=== PATIENT | female | born 1995 | race Caucasian/White ===

== ENCOUNTER 2017-12-18 23:55 | Emergency (ER) | payer MEDICAID ==
[2017-12-19] MEDS ORDERED: IBUPROFEN 600 MG TAB PO ONE (00:06)
[2017-12-19 00:08] VITALS: BP 129/72
--- NOTE | 2017-12-19 00:15 | EDPHY ---
H & P Time Seen by Provider: 12/19/17 00:05 HPI/ROS: CC: Right hand pain HPI: This 22-year-old female presents to emergency department today with her father complaining of right hand pain for the last week. She was carrying a large ceramic pot and tripped, striking her right hand against another large ceramic pot. She saw her primary care provider who did an x-ray was told they did not see any fractures. They did advise the patient that if the pain continued, it should be re-x-rayed in about 7 days. The pain is been 8/10 despite taking Motrin. It is difficult for her to write her exams for school because of the pain. The pain and bruising is on the lateral side of her hand but there is also pain in the lateral wrist. No other injury. REVIEW OF SYSTEMS: Constitutional: No recent illness. Musculoskeletal: No neck or back pain. Skin: No open wounds. Neurological: No numbness or tingling. Past Medical/Surgical History: PMH: Denied PSH: Burnside teeth NKDA Meds: OC Denies Social History: Denies tobacco or marijuana products. No ETOH. Physical Exam: General Appearance: Alert, mild distress. Eyes: Pupils equal and round no pallor or injection. ENT, Mouth: Mucous membranes are moist. Respiratory: There are no retractions, lungs are clear to auscultation. Cardiovascular: Regular rate and rhythm. Neurological: Awake and alert, sensory and motor exams grossly normal. Skin: Warm and dry, no rashes. Musculoskeletal: Neck and back are supple, nontender. Right hand has ecchymosis over the 4th metacarpal. No STS. Tender to palpation over the lateral hand and lateral wrist. CMS intact. No open wounds or abrasions. Psychiatric: Patient is oriented X 3, there is no agitation. DIFFERENTIAL DIAGNOSIS: After history and physical exam differential diagnosis was considered for but not limited to: Hand contusion, Hand fracture. Constitutional: Initial Vital Signs Temperature (C) 99.0 F 12/19/17 00:04 Heart Rate 95 12/19/17 00:04 Respiratory Rate 16 12/19/17 00:04 Blood Pressure 129/72 H 12/19/17 00:04 O2 Sat (%) 96 12/19/17 00:04 O2 Delivery Mode Room Air Allergies/Adverse Reactions: No Known Allergies Allergy (Unverified 12/19/17 00:04) Home Medications: Medication Instructions Recorded Bcp 12/19/17 Medical Decision Making - Diagnostics Imaging Results: Right hand x-ray negative for fracture or foreign body by my read. Imaging: I viewed and interpreted images myself ED Course/Re-evaluation: The patient was seen and examined. Vital signs reviewed. Her prior x-rays were not available for my review. Repeat x-rays showed no acute or subacute fracture or soft tissue swelling or foreign body by my read. Patient was given ibuprofen for her pain and a Velcro wrist splint for comfort. She asked for a note to be able to dictate her answers during an hour long written exam this coming Thursday. She asked what else she could take for the pain and I advised her to add Tylenol as directed as needed. She should follow up with her primary care provider if symptoms persist. - Data Points Medications Given: Discontinued Medications Ibuprofen (Motrin) 600 mg PO EDNOW ONE Stop: 12/19/17 00:07 Last Admin: 12/19/17 00:11 Dose: 600 mg Departure - Departure Disposition: Home, Routine, Self-Care Clinical Impression: Contusion of hand, right Qualifiers: Encounter type: subsequent encounter Qualified Code(s): S60.221D - Contusion of right hand, subsequent encounter Condition: Good Instructions: Contusion in Adults (ED) Additional Instructions: Continue Tylenol and/or Motrin for pain as directed. Wear splint for comfort. Follow up with your primary care provider if symptoms persist. Your x-ray will be read by a radiologist and we will call you if any abnormality is found that was not identified this evening. Stand Alone Forms: Work Limited Duty
== END 2017-12-19 00:40 | disposition home or self-care (01) ==
LOC: CED 23:55
DX: S60.221A Contusion of right hand, initial encounter (principal); W18.40XA Slipping, tripping and stumbling without falling, unspecified, initial encounter
CPT/HCPCS: 73130-PO; L3908